=== PATIENT | male | born 1960 | race Caucasian/White ===

== ENCOUNTER 2019-04-06 14:11 | Emergency (ER) | payer SELFPAY ==
[~2019-04-06] VITALS: Ht 180.3 cm; Wt 94.0 kg
[2019-04-06] MEDS ORDERED: OLANZAPINE 10 MG/VIAL IM STA (14:39)
[2019-04-06] MEDS ORDERED: LORAZEPAM 2MG/ML CPJ IM STA (14:39)
[2019-04-06 15:37] LABS: BASOPHILS % 0.6 % (0.0-2.0); EOSINOPHILS % 0.9 % (0.0-5.0); HEMATOCRIT. 38.1 % (42.0-52.0); HEMOGLOBIN. 12.9 g/dL (14.0-18.0); LYMPHOCYTES % 21.4 % (20.0-50.0); MEAN CORPUSCULAR HEMOGLOBIN 30.2 pg (28.0-32.0); MEAN CORPUSCULAR VOLUME 89.1 fL (80.0-94.0); MEAN PLATELET VOLUME 8.7 fl (7.4-10.4); NEUTROPHILS % 66.1 % (40.0-76.0); PLATELET 260 x1000/uL (130-400); RED BLOOD CELL COUNT 4.28 mill/uL (4.7-6.1); RED CELL DISTRIBUTION WIDTH 14.6 % (11.6-14.6)
[2019-04-06 15:42] LABS: CHLORIDE 105 mEq/L (98-107)
[2019-04-06 15:46] LABS: ETHANOL BLOOD < 10 mg/dL
[2019-04-06] MEDS ORDERED: POTASSIUM CHLORIDE 20MEQ TABLET SR PO ONE (16:30)
[2019-04-06] MEDS ORDERED: OLANZAPINE 10 MG/VIAL IM ONE (23:30)
[2019-04-06] MEDS ORDERED: LORAZEPAM 2MG/ML CPJ IM PRN (23:45)
[2019-04-07] MEDS ORDERED: LORAZEPAM 2MG/ML CPJ IM ONE (09:00)
[2019-04-07] MEDS ORDERED: PERMETHRIN 5% CREAM 60GM TOP ONE (09:15)
[2019-04-07] MEDS ORDERED: POTASSIUM CHLORIDE 20MEQ TABLET SR PO ONE (10:15)
[2019-04-07 11:48] LABS: *AMPHETAMINES SCREEN URINE NEGATIVE (NEGATIVE); *BARBITURATES SCREEN URINE NEGATIVE (NEGATIVE)
[2019-04-07 11:50] LABS: *BENZODIAZEPINES SCREEN URINE NEGATIVE (NEGATIVE); *COCAINE SCREEN URINE NEGATIVE (NEGATIVE); CANNABINOID URINE SCREEN NEGATIVE (NEGATIVE); METHADONE URINE SCREEN NEGATIVE (NEGATIVE); OPIATES URINE SCREEN NEGATIVE (NEGATIVE); PHENCYCLIDINE URINE SCREEN NEGATIVE (NEGATIVE)
[2019-04-07 12:32] LABS: CLARITY URINE CLEAR (CLEAR); COLOR URINE YELLOW (YELLOW); KETONES URINE NEGATIVE (NEGATIVE); LEUKOCYTE ESTERASE URINE NEGATIVE (NEGATIVE); NITRITE URINE NEGATIVE (NEGATIVE); OCCULT BLOOD URINE NEGATIVE (NEGATIVE); PH URINE 5.5 (4.5-8.0); PROTEIN URINE NEGATIVE (NEGATIVE); SPECIFIC GRAVITY URINE 1.012 (1.005-1.030)
[2019-04-07] MEDS ORDERED: OLANZAPINE 10 MG/VIAL IM ONE ×2 (14:00→23:15)
[2019-04-07] MEDS ORDERED: OLANZAPINE 10 MG/VIAL IM NR (16:00)
[2019-04-08] MEDS ORDERED: LORAZEPAM 1MG TABLET PO ONE ×2 (01:15→20:45)
[2019-04-08] MEDS ORDERED: LORAZEPAM 2MG/ML CPJ IM ONE ×2 (07:45→15:30)
[2019-04-08] MEDS ORDERED: HALOPERIDOL LACTATE 5MG/ML VIAL IM ONE (09:15)
[2019-04-08] MEDS ORDERED: DIPHENHYDRAMINE 50MG/ML VIAL IM ONE (09:15)
[2019-04-08] MEDS ORDERED: NICOTINE 7MG PATCH TD ONE (16:00)
[2019-04-08] MEDS ORDERED: OLANZAPINE 5MG TABLET ODT PO ONE (20:45)
[2019-04-09] MEDS ORDERED: LORAZEPAM 1MG TABLET PO ONE (02:30)
[2019-04-09] MEDS ORDERED: OLANZAPINE 10 MG/VIAL IM ONE (05:30)
[2019-04-09] MEDS ORDERED: NICOTINE 7MG PATCH TD ONE (16:45)
[2019-04-10] MEDS ORDERED: OLANZAPINE 10 MG/VIAL IM ONE (04:00)
[2019-04-10] MEDS ORDERED: LORAZEPAM 1MG TABLET PO ONE ×2 (14:30→23:00)
[2019-04-12] MEDS ORDERED: LORAZEPAM 1MG TABLET PO ONE ×2 (00:15→19:00)
[2019-04-12] MEDS ORDERED: DIPHENHYDRAMINE 25MG CAPSULE PO ONE (19:00)
[2019-04-12] MEDS ORDERED: HALOPERIDOL 5MG TABLET PO ONE (19:00)
[2019-04-13] MEDS: NICOTINE 21MG PATCH TD SCH ×2 (00:42→09:00)
[2019-04-14] MEDS ORDERED: DIPHENHYDRAMINE 25MG CAPSULE PO ONE (05:30)
[2019-04-14] MEDS: NICOTINE 21MG PATCH TD SCH (09:00)
[2019-04-14 19:38] VITALS: BP 120/83
== END 2019-04-14 20:15 ==
LOC: ER 14:20
DX: F23 Brief psychotic disorder (principal); B86 Scabies; R45.851 Suicidal ideations; I49.9 Cardiac arrhythmia, unspecified; Z59.0 Homelessness; Z75.1 Person awaiting admission to adequate facility elsewhere
CPT/HCPCS: 36415; 70450; 80053; 80307; 80320; 80329; 85025; 93005; 96372; 99284; J1630; J2060; J3490; Q0163; Z7610; G0480